=== PATIENT | male | born 1985 | race Caucasian/White ===

== ENCOUNTER 2020-01-22 02:06 | Emergency (ER) | payer OTHER ==
[~2020-01-22] VITALS: Ht 182.9 cm; Wt 91.0 kg
[2020-01-22 02:07] VITALS: BP 172/120
== END 2020-01-22 02:56 | disposition left against medical advice (07) ==
LOC: ER 02:48
DX: Z53.21 Procedure and treatment not carried out due to patient leaving prior to being seen by health care provider (principal)
CPT/HCPCS: 93005